=== PATIENT | male | born 1995 | race Caucasian/White ===

== ENCOUNTER 2021-08-01 16:47 | Emergency (ER) | payer BC ==
[2021-08-01 19:54] VITALS: RESP 18; TEMP 99.8
[2021-08-02] MEDS ORDERED: ACETAMINOPHEN TAB 500 MG TAB PO STA (00:21)
--- NOTE | 2021-08-02 00:24 | ED ---
ENT HPI - General Chief complaint: ENT Stated complaint: Tonsil Abscess Time Seen by Provider: 08/01/21 23:59 Source: patient Mode of arrival: ambulatory Limitations: no limitations - History of Present Illness Initial comments: This is a pleasant 26-year-old male who states that 2 weeks ago he was treated for tonsillitis with antibiotics. Patient states the symptoms got better but then returned again. Patient was seen at urgent care today and was given a dose of steroids as well as a dose of penicillin. Patient states he was told to come here to be checked for a peritonsillar abscess. Patient states his symptoms are much improved at this time. He states he does have an enlarged tonsil on the left which does cause some pain with swallowing. Patient has no immunosuppression. He denies any shaking chills but does have a low-grade fever. No shortness of breath. Patient states he was checked for streptococcus at the urgent care but then started on antibiotics. No headache, no fever or chills, no changes in vision or hearing, no sore throat or difficulty with speech, no neck pain, no chest pain or shortness of breath, no abdominal pain, no nausea or vomiting, no changes in urination or bowel movements, no numbness or tingling, no extremity pain, no skin rashes or lesions. - Related Data Previous Rx's Medication Instructions Recorded Amoxic-Pot Clav 875-125Mg 1 tab PO Q12HR 10 Days #20 tab 08/02/21 [Augmentin 875-125] methylPREDNISolone Dose Pack 4 mg PO DIRECTED #21 tab 08/02/21 [Medrol Dose Pack] Allergies Allergy/AdvReac Type Severity Reaction Status Date / Time No Known Allergies Allergy Verified 08/01/21 19:54 Review of Systems ROS Statement: Those systems with pertinent positive or pertinent negative responses have been documented in the HPI. ROS Other: All systems not noted in ROS Statement are negative. Past Medical History Past Medical History: No Reported History History of Any Multi-Drug Resistant Organisms: None Reported Past Surgical History: No Surgical Hx Reported Past Psychological History: No Psychological Hx Reported Smoking Status: Light tobacco smoker Past Alcohol Use History: Occasional Past Drug Use History: None Reported General Exam - General Exam Comments Initial Comments: General a healthy-appearing 26-year-old male in no significant distress. Patient does have what appears be a low-grade fever and is mildly tachycardic. However has no airway problems. No changes in voice. No evidence of hot potato voice. Cranial nerves II through XII grossly intact. No evidence of airway compromise. Limitations: no limitations General appearance: alert, in no apparent distress Head exam: Present: atraumatic, normocephalic, normal inspection Eye exam: Present: normal appearance, PERRL, EOMI. Absent: scleral icterus, conjunctival injection, periorbital swelling ENT exam: Present: normal exam, mucous membranes moist, TM's normal bilaterally, normal external ear exam. Absent: mucous membranes dry Expanded Ear exam: Present: normal external inspection Mouth exam: Absent: drooling, trismus, muffled voice, tongue normal, tongue elevation, laceration Throat exam: tonsillar erythema, tonsillomegaly, other (Patient does have evidence of tonsillitis, left greater than right, uvula is midline. His evidence of purulent postnasal drainage. Nasal passages are patent. No definitive peritonsillar abscess). negative: tonsillar exudate, R peritonsillar mass Neck exam: Present: normal inspection, full ROM, lymphadenopathy (Mildly tender anterior cervical lymphadenopathy). Absent: tenderness, meningismus Respiratory exam: Present: normal lung sounds bilaterally. Absent: respiratory distress, wheezes, rales, rhonchi, stridor, chest wall tenderness, accessory muscle use Cardiovascular Exam: Present: regular rate, normal rhythm, normal heart sounds. Absent: systolic murmur, diastolic murmur, rubs, gallop, clicks GI/Abdominal exam: Present: soft, normal bowel sounds. Absent: distended, tenderness, guarding, rebound, rigid, diminished bowel sounds, hyperactive bowel sounds, hypoactive bowel sounds, organomegaly, mass Extremities exam: Present: normal inspection, full ROM, normal capillary refill. Absent: tenderness, pedal edema, joint swelling, calf tenderness Back exam: Present: normal inspection Neurological exam: Present: alert, oriented X3, CN II-XII intact Psychiatric exam: Present: normal affect, normal mood Skin exam: Present: warm, dry, intact, normal color. Absent: rash Course Vital Signs 08/01/21 19:52 Temperature 99.8 F H Pulse Rate 109 H Respiratory 18 Rate Blood Pressure 136/83 O2 Sat by Pulse 99 Oximetry Medical Decision Making - Medical Decision Making I did advise a workup to the patient to include blood work as well as a CT of the neck soft tissues to rule out abscess. Physical examination was not convincing of any significant abscess. However patient was sent in by urgent care for this. Patient is refusing any workup stating that his symptoms are much improved. Patient has no evidence of airway compromise. No hot potato voice or muffled voice. Again, I suggested workup which patient refused. Patient is of sound mind and able to make his own medical decisions. He does agree to come back if any symptoms worsen. I'm going to send a prescription for Augmentin to his pharmacy as the urgent care already started him on antibiotics. Patient was also given follow-up information for ENT which she is to call at 8 AM tomorrow morning. On-call ENT doctor is Dr. Ruggiero Patient was told to return to the ER for any signs or symptoms worsen. Told to return immediately if any other problems arise. All questions answered. Treatment plan discussed. Patient in agreement Every effort has been made to ensure accuracy of this dictation. However, due to the limitations of electronic medical records and dictation devices, errors in charting still occur. Patient concurs with this treatment plan. All questions answered. We did discuss risks for his benefits of not doing the workup with a computed tomography scan. Patient states he understands these risks. System Administrator Dr. Wilkerson Disposition Clinical Impression: Acute tonsillitis Disposition: HOME SELF-CARE Condition: Stable Instructions (If sedation given, give patient instructions): Tonsillitis (ED) Additional Instructions: Call in a.m. to set up the follow-up plan with the ear nose and throat doctor as discussed. Follow-up with your regular physician as directed. Return to the ER immediately if any symptoms worsen, new symptoms arise, or any other problems develop. Take all antibiotics as directed. Prescriptions: Amoxic-Pot Clav 875-125Mg [Augmentin 875-125] 1 tab PO Q12HR 10 Days #20 tab methylPREDNISolone Dose Pack [Medrol Dose Pack] 4 mg PO DIRECTED #21 tab Is patient prescribed a controlled substance at d/c from ED?: No Referrals: Sunny Ruggiero MD [STAFF PHYSICIAN] - 1-2 days Time of Disposition: 00:24
[2021-08-02 01:00] VITALS: BP 125/80; PULSE 79
== END 2021-08-02 01:01 | disposition home or self-care (01) ==
LOC: EC 16:47
DX: J03.90 Acute tonsillitis, unspecified (principal); F17.200 Nicotine dependence, unspecified, uncomplicated
CPT/HCPCS: 99283